=== PATIENT | female | born 1935 | race Caucasian/White ===

== ENCOUNTER → 2016-05-06 | Outpatient (CLI) | payer MEDICARE, OTHER ==
[~2016-05-06] MED LIST: CALCIUM + VITA1 EACH PO; CLARITIN10 MG PO; CYMBALTA30 MG PO; ESTRACE VAG; HYDROCHLOROTHIA25 MG PO; LUTEIN20 MG PO; PRAVACHOL40 MG PO; PRILOSEC20 MG PO; PRINIVIL20 MG PO; TYLENOL325 MG PO; VITAMIN D31000 UNI1 PO; XARELTO15 MG PO; ZANAFLEX2 MG PO
== END | disposition short-term general hospital (02) ==
LOC: CLUROL 15:15
DX: R31.29 Other microscopic hematuria (principal)

== ENCOUNTER 2016-05-20 13:37 | Day surgery (SDC) | payer MEDICARE, OTHER | END 2016-05-20 15:21 | disposition short-term general hospital (02) | LOC: SURGOP 13:37 | PROC: 0TJB8ZZ Inspection of Bladder, Via Natural or Artificial Opening Endoscopic (ICD-10-PCS; principal; 2016-05-20) | DX: N36.2 Urethral caruncle (principal); R31.29 Other microscopic hematuria ==

== ENCOUNTER → 2016-05-26 | Outpatient (CLI) | payer MEDICARE, OTHER | END | disposition short-term general hospital (02) | LOC: CLONCO 08:40 → CLOBGYN 13:57 | DX: N83.202 Unspecified ovarian cyst, left side (principal) ==

== ENCOUNTER 2016-07-22 23:17 | Emergency (ER) | payer MEDICARE, OTHER ==
[~2016-07-22] VITALS: Ht 162.6 cm; Wt 90.3 kg
== END 2016-07-23 00:15 | disposition short-term general hospital (02) ==
LOC: ER 23:17
DX: M79.672 Pain in left foot (principal); Z79.899 Other long term (current) drug therapy; Z86.718 Personal history of other venous thrombosis and embolism; Z79.01 Long term (current) use of anticoagulants

== ENCOUNTER → 2016-07-31 | Outpatient (CLI) | payer MEDICARE, OTHER | END | disposition short-term general hospital (02) | LOC: CLVASC 10:50 | DX: I87.2 Venous insufficiency (chronic) (peripheral) (principal); M25.472 Effusion, left ankle; I83.90 Asymptomatic varicose veins of unspecified lower extremity ==